=== PATIENT | male | born 1965 | race Hispanic/Latino ===

== ENCOUNTER 2017-10-31 06:47 | Day surgery (SDC) | payer OTHER ==
[~2017-10-31] VITALS: Ht 175.3 cm; Wt 96.3 kg
[~2017-10-31 06:47] MED LIST: SODIUM CHLORIDE 0.9% 1000ML 0 ML IV ONE; SODIUM CHLORIDE 0.9% 1000ML 1,000 ML IV ONE
[2017-10-31 06:49] VITALS: BP 128/77
[2017-10-31] MEDS ORDERED: METF10004 PO (07:27)
[2017-10-31] MEDS ORDERED: FENO145T37 PO (07:27)
[2017-10-31] MEDS ORDERED: ROSU10TA27 PO (07:27)
[2017-10-31] MEDS ORDERED: PROPOFOL 10 MG/ML 20ML VIAL IV ONE (08:11)
[2017-10-31] MEDS ORDERED: PHENYLEPHRINE HCL 10 MG/ML 1ML VIAL IV ONE (08:30)
[2017-10-31 08:37] VITALS: BP 97/56
[2017-10-31 08:56] VITALS: BP 112/74
== END 2017-10-31 09:05 ==
LOC: ENDO 06:47 → DAH 06:47 → ENDO 09:05
PROVIDERS: ATTEND Internal Medicine Gastroenterology
DX: Z12.11 Encounter for screening for malignant neoplasm of colon (principal); D12.2 Benign neoplasm of ascending colon; D12.4 Benign neoplasm of descending colon; Z68.41 Body mass index [BMI] 40.0-44.9, adult; E11.9 Type 2 diabetes mellitus without complications; K21.9 Gastro-esophageal reflux disease without esophagitis; E78.5 Hyperlipidemia, unspecified; Z98.890 Other specified postprocedural states; Z83.3 Family history of diabetes mellitus; Z79.899 Other long term (current) drug therapy; Z79.84 Long term (current) use of oral hypoglycemic drugs; F17.210 Nicotine dependence, cigarettes, uncomplicated
CPT/HCPCS: 45380; 45385; 82948 ×3; 88305; A4606; A4649; J2370; J2704; J7030